=== PATIENT | female | born 1980 ===

== ENCOUNTER 2016-09-28 20:58 | Emergency (ER) | payer OTHER ==
[2016-09-28] MEDS ORDERED: HYDROCODONE/ACETAMINOPHEN 5/325MG TABLET ONE (22:44)
[2016-09-28] MEDS ORDERED: CLINDAMYCIN HCL 150 MG CAPSULE ONE (22:44)
== END 2016-09-28 22:58 | disposition home or self-care (01) ==
LOC: ED 20:58
DX: L03.114 Cellulitis of left upper limb (principal)
CPT/HCPCS: 99283 ×2; A9270 ×2